=== PATIENT | female | born 1980 | race Caucasian/White ===

== ENCOUNTER 2016-06-17 02:48 | Emergency (ER) | payer MEDICAID ==
[~2016-06-17] VITALS: Ht 160 cm; Wt 60.0 kg
[~2016-06-17 02:48] MED LIST: PRENATAL
[2016-06-17 03:32] VITALS: Ht 160 cm; Wt 60.0 kg
[2016-06-17] MEDS ORDERED: TETRACAINE 0.5% 15 ML OPH LEFT EYE ONE (04:00)
[2016-06-17] MEDS ORDERED: FLUORESCEIN STRIP LEFT EYE ONE (04:00)
--- NOTE | 2016-06-17 04:50 | ERD ---
ER Documentation Chief Complaint Date/Time DATE: 06/17/16 TIME: 04:48 Chief Complaint eye redness HPI 36-year-old female presents here in emergency department for complaints of left eye redness, left upper eyelid pain and tearing of left eye started 2 days ago. Patient complaining of left upper eyelid pain, sharp pain, succession scale, is worse upon touching an opening and closing the eyes. Patient denies any trauma in the eye. Patient denies any vision changes. Patient denies any fever or chills. Patient denies any eye discharge. She denies any redness or swelling on affected area. ROS All systems reviewed and are negative except as per history of present illness. 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 Reported Medications [] No Conflict Check 07/08/09 Allergies Allergies: Coded Allergies: No Known Drug Allergy (Verified Allergy, Unknown, 01/10/10) Uncoded Allergies: NONE (Allergy, Mild, 07/08/09) PMhx/Soc History of Surgery: Yes (Cholecystectomy) Anesthesia Reaction: No Hx Neurological Disorder: No Hx Respiratory Disorders: No Hx Cardiac Disorders: No Hx Psychiatric Problems: No Hx Miscellaneous Medical Probl: No Hx Alcohol Use: No Hx Substance Use: No Hx Tobacco Use: No Smoking Status: Never smoker FmHx Family History: No coronary disease, No diabetes, No other Physical Exam Vitals Vital Signs Date Time Temp Pulse Resp B/P Pulse Ox O2 Delivery O2 Flow Rate FiO2 06/17/16 03:32 98.3 74 20 133/80 100 Physical Exam GENERAL: The patient is well developed and appropriate for usual state of health, in no apparent distress. HEENT: Atraumatic. Eyes are PERRL EOM intact, left eye conjunctiva is noted to be erythematous and tearing. No noted. Right conjunctiva is normal. Ears: Normal tympanic membrane, no erythema or bulging. No ear canal swelling. No ear discharge. Nose: normal nasal turbinates, no erythema or swelling. Normal nasal discharge. Throat: oropharynx clear. No tonsillar swelling or tonsillar exudates. No lymphadenopathy. CHEST: Clear to auscultation bilaterally. There are no rales, wheezes or rhonchi. HEART: Regular rate and rhythm. No murmurs, clicks, rubs or gallops. No S3 or S4. ABDOMEN: Soft, nontender and nondistended. Good bowel sounds. No rebound or guarding. No gross peritonitis. No gross organomegaly or masses. No Aquino sign or McBurney point tenderness. BACK: No midline or flank tenderness. EXTREMITIES: Equal pulses bilaterally. There is no peripheral clubbing, cyanosis or edema. No focal swelling or erythema. Full range of motion. Grossly neurovascularly intact. NEURO: Alert and oriented. Cranial nerves 2-12 intact. Motor strength in all 4 extremities with 5/5 strength. Sensation grossly intact. Normal speech and gait. SKIN: There is no apparent rash or petechia. The skin is warm and dry. HEMATOLOGIC AND LYMPHATIC: There is no evidence of excessive bruising or lymphedema. No gross cervical, axillary, or inguinal lymphadenopathy. Results 24 hrs Current Medications Medications (Trade) Dose Ordered Sig/Chuck Route PRN Reason Start Time Stop Time Status Last Admin Dose Admin Tetracaine HCl (Tetracaine 0.5% Oph) 1 drop ONCE ONCE LEFT EYE 06/17/16 04:00 06/17/16 04:02 DC Fluorescein Sodium ([id number]) 1 strip ONCE ONCE LEFT EYE 06/17/16 04:00 06/17/16 04:02 DC Visual acuity was done, 20/40 on right eye 20/40 and left eye, both missed one letter each eye. Procedures/MDM Procedure Note: After obtaining informed consent, the left eye was stained using fluorescein dye. After staining the eye, A Wood's lamp was used to evaluate the eye. There is no foreign body noted in the eye. No corneal abrasions noted. Patient tolerated procedure well. After patient's verbal consent, the left eye in the right eye was numbed using tetracaine ophthalmic solution 5%, after numbing the eye, the both eyes were checked, eye pressures were checked, 18 mmHg on the left eye, 16 mmHg on the right eye. Medical decision taking: Patient's symptoms most likely is consistent with left eye blepharitis with left eye conjunctivitis. At this time, no foreign body, no corneal abrasion noted. No herpes simplex virus, no symptoms of retinal detachment. No symptoms of acute closed angle glaucoma, patient's eye pressures were normal. No visualized Kiki sign. Patient was given prescription for Keflex, erythromycin eye ointment, Vigamox ophthalmic solution, is advised to follow with primary care doctor in 2-3 days, see hazardous material specialist within 1-2 days for further evaluation of symptoms. Patient was advised to return to emergency department for any worsening symptoms. Departure Diagnosis: Primary Impression: Blepharitis, left eye Blepharitis type: unspecified type Eyelid: upper Qualified Code: H01.004 - Blepharitis of left upper eyelid, unspecified type Additional Impression: Bacterial conjunctivitis of left eye Condition: Stable JAYLA BALBUENA NP Jun 17, 2016 04:50
[2016-06-17] MEDS ORDERED: ERYTOPOI LEFT EYE (05:13)
[2016-06-17] MEDS ORDERED: VIGA LEFT EYE (05:13)
[2016-06-17] MEDS ORDERED: CEPH-443 PO (05:13)
== END 2016-06-17 05:20 | disposition home or self-care (01) ==
LOC: FTE 02:48
DX: H01.004 Unspecified blepharitis left upper eyelid (principal); H10.022 Other mucopurulent conjunctivitis, left eye
CPT/HCPCS: Z7502; Z7610; 99284